=== PATIENT | male | born 1990 | race Hispanic/Latino ===

== ENCOUNTER 2023-07-01 12:48 | Emergency (ER) | payer OTHER, SELFPAY ==
[~2023-07-01] VITALS: Ht 167.6 cm; Wt 77.1 kg
[2023-07-01] MEDS: TETANUS/DIPHTHERIA TOXOID [ADULT] 0.5 ML VIAL IM ONE (17:37)
[2023-07-01] MEDS ORDERED: CEPH500B PO (18:09)
[2023-07-01 18:12] VITALS: BP 135/78; PULSE 78; RESP 14; O2SAT 100
== END 2023-07-01 18:20 | disposition home or self-care (01) ==
LOC: EDH 12:48
DX: S81.811A Laceration without foreign body, right lower leg, initial encounter (principal); F41.9 Anxiety disorder, unspecified; J45.909 Unspecified asthma, uncomplicated; Z88.6 Allergy status to analgesic agent; W25.XXXA Contact with sharp glass, initial encounter; Y93.59 Activity, other involving other sports and athletics played individually; Y92.89 Other specified places as the place of occurrence of the external cause; Y99.8 Other external cause status
CPT/HCPCS: 12004; 73590; 90471; 90714